=== PATIENT | male | born 1975 | race Caucasian/White ===

== ENCOUNTER 2021-02-15 21:06 | Emergency (ER) | payer SELFPAY ==
[2021-02-15] MEDS ORDERED: Lidocaine 1% 10 ML MDV INJECT ONE (21:44)
[2021-02-15] MEDS ORDERED: LORazepam 2 MG/ML SDV IVPUSH ONE (22:51)
--- NOTE | 2021-02-15 23:00 | EDM.PDOC ---
ED HPI GENERAL MEDICAL PROBLEM - General Chief Complaint: Laceration Stated Complaint: FELL DOWNSTAIRS/SEVERAL LAC Time Seen by Provider: 02/15/21 21:58 Source of Information: Reports: Patient, Family History Limitations: Reports: No Limitations - History of Present Illness INITIAL COMMENTS - FREE TEXT/NARRATIVE: 45-year-old fairly intoxicated male presents emergency department with laceration noted to his left upper lip as well as his right palm. Patient states he has been drinking and doing shots of hard alcohol a day today and fell down a flight of cement stairs. States he was not knocked unconscious at the time however he just laid there because he states he was unable to get up. Patient does have a large gouging laceration to the left upper lip which is through and through. Swelling and abrasion noted to left cheek. Large flap laceration noted to the lateral aspect of the right palm. - Related Data Allergies Allergy/AdvReac Type Severity Reaction Status Date / Time No Known Allergies Allergy Verified 02/15/21 21:33 Home Meds: Home Meds Amoxicillin 875 mg PO BID #19 tab 02/16/21 [Rx] Social & Family History - Tobacco Use Tobacco Use Status *Q: Former Tobacco User Used Tobacco, but Quit: Yes Month/Year Tobacco Last Used: 8 yr - Caffeine Use Caffeine Use: Reports: Coffee, Tea - Recreational Drug Use Recreational Drug Use: No ED ROS GENERAL - Review of Systems Review Of Systems: Comprehensive ROS is negative, except as noted in HPI. ED EXAM, SKIN/RASH Exam: See Below Exam Limited By: Intoxication General Appearance: Alert ED SKIN PROCEDURES - Laceration/Wound Repair Left Upper Other Appearance: Superficial Anesthetic Type: Local Local Anesthesia - Lidocaine (Xylocaine): 1% Plain Local Anesthetic Volume: 5cc Closed with: Sutures Lac/Wound length In cm: 3 Suture Size: 5-0 # of Sutures: 9 Suture Type: Nylon, Interrupted Mouth Appearance: Superficial Local Anesthesia - Lidocaine (Xylocaine): 1% Plain Local Anesthetic Volume: 3cc Closed with: Sutures Lac/Wound length In cm: 2 Suture Size: 5-0 # of Sutures: 3 Suture Type: Interrupted, Other (Vicryl) Right Hand Appearance: Superficial Anesthetic Type: Local Local Anesthesia - Lidocaine (Xylocaine): 1% Plain Local Anesthetic Volume: 4cc Closed with: Sutures Lac/Wound length In cm: 3 Suture Size: 5-0 # of Sutures: 8 Suture Type: Nylon, Interrupted Course - Vital Signs Text/Narrative:: Patient has a large gaping gash noted to his left upper lip through and through to the inside. Patient also has a large flap-like laceration noted to the lateral aspect of his right forearm. Do not appreciate any loose teeth. Patient is very intoxicated. Will obtain a CT scan of the head and facial bones. I will also order lidocaine 1% as patient will need to have sutures placed for repair of his lacerations. Last Recorded V/S: Last Vital Signs Temp 97.6 F 02/15/21 21:38 Pulse 101 H 02/15/21 21:38 Resp 20 02/15/21 21:38 BP 130/89 02/15/21 21:38 Pulse Ox 97 02/15/21 21:38 - Orders/Labs/Meds Orders: Active Orders 24 hr Category Date Time Status Head wo Cont [CT] Stat Exams 02/15/21 22:10 Taken Max Facial Sinus wo Cont [CT] Stat Exams 02/15/21 22:10 Taken Meds: Medications Discontinued Medications Generic Name Dose Route Start Last Admin Trade Name Freq PRN Reason Stop Dose Admin Lidocaine HCl 10 ml 02/15/21 21:44 02/15/21 21:48 Lidocaine 1% 10 Ml Mdv INJECT 02/15/21 21:45 10 ml ONETIME ONE Administration Lorazepam 0.25 mg 02/15/21 22:51 02/15/21 23:08 Lorazepam 2 Mg/Ml Sdv IVPUSH 02/15/21 22:52 0.25 mg ONETIME ONE Administration - Re-Assessments/Exams Free Text/Narrative Re-Assessment/Exam: 02/15/21 22:[address] of the head without contrast: Brain: No acute hemorrhage. Unremarkable white matter. No mass-effect. Cerebral ventricles: No ventriculomegaly. Paranasal sinuses: Visualized sinuses are unremarkable. No fluid levels. Mastoid air cells: Visualized mastoid air cells are well aerated. Bone/joints: Mild acute bilateral nasal bone fracture. No calvarial fracture. Soft tissues: Unremarkable. Impression: 1. No acute intracranial abnormality. 2. Nasal bone fracture. vRad radiologist impression CT maxillofacial without contrast orbital cavity: Orbits are normal. Globes are unremarkable. Bone/joints: Acute nondisplaced fracture of the bilateral nasal bones. Acute minimally displaced fracture of the anterior process of the maxilla. Paranasal sinuses: Normal. No air-fluid levels. Soft tissues: Anterior soft tissue swelling. Impression: Acute fractures of the nasal bones and anterior process of the maxilla. Face was prepped and draped in sterile fashion. Was just getting ready to inject patient with lidocaine and he got very anxious and stated he did not want to have the procedure completed. He states he wants to go home and signed AGAINST MEDICAL ADVICE. Patient was notified that he could very likely get a severe infection in this area and he states that he does not care and does not want to stay. I notified the charge nurse of the situation and she did go in and speak with the patient. He has agreed to stay if we do give him something for anxiety. I am very resilient to medicate the patient with anything as he is intoxicated however will give him 1/4 mg of IV Ativan. 02/16/21 00:21 Patient was now agreeable to receiving sutures. Patient wounds are prepped and draped in sterile fashion. Nursing staff notifies me that patient refused his tetanus shot. Patient had separation from his left inner lip and gumline. I did have Dr. Contreras come in to attempt to repair this area however he was unable to do so. We will allow tissue to granulate on its own. Patient has been notified to stay away from salty or acidic type of foods. 02/16/21 00:26 Patient was given a dose of amoxicillin 1000 mg p.o. We will send a prescription to his pharmacy for 875 twice daily for 10 days. Departure - Departure Time of Disposition: 00:26 Disposition: Home, Self-Care 01 Condition: Good Clinical Impression: Maxillary fracture, left side, initial encounter for closed fracture Laceration of face Qualifiers: Encounter type: initial encounter Qualified Code(s): S01.81XA - Laceration without foreign body of other part of head, initial encounter Nasal bone fractures Qualifiers: Encounter type: initial encounter Fracture type: closed Qualified Code(s): S02.2XXA - Fracture of nasal bones, initial encounter for closed fracture Laceration of hand Qualifiers: Encounter type: initial encounter Foreign body presence: without foreign body Laterality: right Qualified Code(s): S61.411A - Laceration without foreign body of right hand, initial encounter - Discharge Information Prescriptions: Amoxicillin 875 mg PO BID #19 tab Referrals: PCP,None [Primary Care Provider] - Forms: ED Department Discharge Additional Instructions: You were seen in the emergency department this evening after falling and hitting her face on the concrete. CT scan of the head and face were completed. Your nose is broken. You also have fracture noted to your left cheek area. These are minimally displaced and will heal on their own over time. You also had large laceration noted to your left upper lip which was repaired with sutures on the outside and the inside. Unable to repair some of the laceration to left upper lip and this will likely need to heal on its own over time. Recommend that you do not eat any salty foods or drink any acidic beverages as these will cause a significant amount of discomfort. Pressure teeth gently as you did have tissue from your top teeth that was a braised away. Lacerations to your face can come out in 5 days time. The lacerations to your inner lip will dissolve on their own. Lacerations were repaired on your right hand as well. The sutures can come out in 7 to 10 days time. You were given an antibiotic called amoxicillin while in the emergency department. I have sent prescription for this antibiotic to [facility] pharmacy for you to brain picker tomorrow. You will need to take this twice daily until gone. Should your condition worsen or change, do not hesitate returning to the emergency department. Sepsis Event Note (ED) - Focused Exam Vital Signs: Vital Signs Temp Pulse Resp BP Pulse Ox 02/15/21 21:38 97.6 F 101 H 20 130/89 97 - My Orders Last 24 Hours: My Active Orders 02/15/21 22:10 Head wo Cont [CT] Stat Max Facial Sinus wo Cont [CT] Stat - Assessment/Plan Last 24 Hours: My Active Orders 02/15/21 22:10 Head wo Cont [CT] Stat Max Facial Sinus wo Cont [CT] Stat
[2021-02-16] MEDS ORDERED: Amoxicillin 500 MG Cap PO ONE (00:20)
--- NOTE | 2021-02-16 07:21 | CT ---
CT facial bones Technique: Multiple axial sections through the facial bones were obtained. Reconstructed coronal and sagittal images were also obtained. Intravenous contrast was not utilized. Comparison: No prior facial bone study is available, head CT exam performed on the same day is available. Findings: Fracture is seen within the anterior edge of the maxilla at the level of the nasal bone. Fracture then extends adjacent to the nasal bone. Minimal displacement is noted. Soft tissue swelling is seen. Air is also noted within the soft tissues presumably due to skin injury. Paranasal sinuses are clear. No additional facial bone fracture is appreciated. Impression: 1. Fracture within the tip of the anterior maxilla at the level of the nasal bone. Fracture then extends into the nasal bone. Minimal displacement is seen. Diagnostic code #3 I agree with preliminary report from [facility], finalized on 02/15/21, 11:50 PM ICE CREAM MAN, code 1
--- NOTE | 2021-02-16 07:21 | CT ---
Head CT Technique: Multiple axial sections through the brain were obtained. Intravenous contrast was not utilized. Reconstructed coronal and sagittal images were obtained. Comparison: No prior intracranial imaging is available. Findings: Ventricles along with basal cisterns and sulci over the convexities are within normal limits. No abnormal parenchymal densities are seen. No evidence of intracranial hemorrhage is seen. No midline shift or mass-effect is seen. Bone window settings were reviewed. Minimal nasal bone fracture is seen. Visualized paranasal sinuses and mastoid sinuses are clear. No acute calvarial abnormality is appreciated. Impression: 1. Nasal bone fracture. 2. Nothing acute is otherwise seen on noncontrast head CT study. Diagnostic code #3 I agree with preliminary report from [facility], finalized on 02/15/21, 11:44 PM INSTRUMENTATION CHEMIST, code 1
== END 2021-02-16 00:47 | disposition home or self-care (01) ==
LOC: JD.ED 21:06
DX: S02.40DA Maxillary fracture, left side, initial encounter for closed fracture (principal); S02.2XXA Fracture of nasal bones, initial encounter for closed fracture; S01.511A Laceration without foreign body of lip, initial encounter; S61.411A Laceration without foreign body of right hand, initial encounter; Z87.891 Personal history of nicotine dependence; W10.8XXA Fall (on) (from) other stairs and steps, initial encounter
CPT/HCPCS: 12002; 12013; 70450; 70486; 96374; 99283; A9270; J2060; 99285

== ENCOUNTER 2022-04-11 22:20 | Emergency (ER) | payer SELFPAY ==
[2022-04-11 23:27] LABS: CORONAVIRUS COVID-19 NAA NEGATIVE (NEGATIVE)
[2022-04-11] MEDS ORDERED: Sodium Chloride 0.9% 1,000 ML IV SCH (23:30)
[2022-04-12] MEDS ORDERED: Iopamidol 755 Mg/ML 100 ML Bottle IVPUSH ONE (00:28)
[2022-04-12] MEDS ORDERED: Sodium Chloride 0.9% 10 ML Syringe FLUSH ONE (00:28)
[2022-04-12] MEDS ORDERED: Sodium Chloride 0.9% 100 ML IV SCH (00:30)
[2022-04-12] MEDS ORDERED: predniSONE 20 MG Tab PO ONE (02:22)
== END 2022-04-12 02:58 | disposition home or self-care (01) ==
LOC: JD.ED 22:20
DX: D86.9 Sarcoidosis, unspecified (principal); Z79.899 Other long term (current) drug therapy; Z86.16 Personal history of COVID-19; Z87.891 Personal history of nicotine dependence; Z20.822 Contact with and (suspected) exposure to COVID-19
CPT/HCPCS: 0241U; 71275; 82103; 85379; 93005; 96360; 99285; J3490; J7030; J7512; Q9967; 36415; 93010; 99284

== ENCOUNTER 2022-12-05 22:19 | Emergency (ER) | payer SELFPAY ==
[2022-12-05 22:44] LABS: HEMATOCRIT 43.8 % (42.0-52.0); HEMOGLOBIN 15.4 gm/dl (14.0-18.0); MEAN CORPUSCULAR HGB CONC 35.2 g/dl (32.0-36.0); MEAN CORPUSCULAR VOLUME 82.5 fl (83.0-99.0); MEAN PLATELET VOLUME 8.4 fl (9.4-12.4); PLATELET COUNT,PLT 249 K/mm3 (150-400); RED BLOOD CELL COUNT 5.31 M/mm3 (4.52-5.90); WHITE BLOOD CELL COUNT,WBC 5.38 K/mm3 (3.9-11.3)
[2022-12-05 23:11] LABS: BAND PERCENT MAN 0 % (0-10); BASOPHILS PERCENT MAN 1 (0.2-1.2); EOSINOPHILS PERCENT MAN 1 % (0.8-7.0); LYMPHOCYTES % ATYPICAL MANUAL 0 %; LYMPHOCYTES PERCENT MAN 31 % (20-40); MONOCYTES PERCENT MAN 12 % (2-10); PLATELET COUNT ESTIMATE ADEQUATE
[2022-12-05 23:16] LABS: A/G RATIO 0.8 (1-2); ALBUMIN 3.7 g/dl (3.4-5.0); ANION GAP 18.6 (5-15); BILIRUBIN TOTAL 0.3 mg/dL (0.2-1.0); CALCIUM 8.9 mg/dL (8.5-10.1); CREATININE 0.8 mg/dL (0.7-1.3); EST CRCL DRUG DOSING (CG) 122.89 mL/min; POTASSIUM,K 3.6 mEq/L (3.5-5.1); PROTEIN TOTAL,TP 8.6 g/dl (6.4-8.2)
[2022-12-05] MEDS ORDERED: Albuterol 6.7 GM Inhaler INH ONE (23:55)
[2022-12-06 00:17] LABS: CORONAVIRUS COVID-19 NAA NEGATIVE (NEGATIVE); INFLUENZA A NAA NEGATIVE (NEGATIVE)
== END 2022-12-06 02:00 | disposition home or self-care (01) ==
LOC: JD.ED 22:19
DX: J40 Bronchitis, not specified as acute or chronic (principal); Z20.822 Contact with and (suspected) exposure to COVID-19; Z86.16 Personal history of COVID-19; Z91.018 Allergy to other foods
CPT/HCPCS: 0240U; 36415; 71045; 71045-26; 80053; 83880; 85007; 85027; 85379; 86140; 87651-QW; 93005; 93010; 94640; 99284; 99285; A9270-GY

== ENCOUNTER 2023-10-27 19:07 | Emergency (ER) | payer SELFPAY ==
[2023-10-27 19:48] LABS: BASOPHILS PERCENT AUTO 0.3 % (0.0-1.0); EOSINOPHILS ABSOLUTE AUTO 0.1 K/mm3 (0.0-0.4); EOSINOPHILS PERCENT AUTO 1.7 % (0.0-6.0); HEMATOCRIT 43.6 % (42.0-52.0); HEMOGLOBIN 14.9 gm/dl (14.0-18.0); IMMATURE GRAN ABSOLUTE AUTO 0.02 K/mm3 (0.00-0.05); IMMATURE GRAN PERCENT AUTO 0.3 % (0.0-0.4); LYMPHOCYTES ABSOLUTE AUTO 1.6 K/mm3 (1.0-4.8); LYMPHOCYTES PERCENT AUTO 23.8 % (24.0-44.0); MEAN CORPUSCULAR HEMOGLOBIN 28.7 pg (28.0-32.0); MEAN CORPUSCULAR HGB CONC 34.2 g/dl (32.0-36.0); MEAN CORPUSCULAR VOLUME 83.8 fl (83.0-99.0); MEAN PLATELET VOLUME 8.6 fl (9.4-12.4); MONOCYTES ABSOLUTE AUTO 0.9 K/mm3 (0.0-0.8); MONOCYTES PERCENT AUTO 12.5 % (0.0-8.0); NEUTROPHILS ABSOLUTE AUTO 4.2 K/mm3 (1.8-7.7); NEUTROPHILS PERCENT AUTO 61.4 % (41.0-71.0); PLATELET COUNT,PLT 236 K/mm3 (150-400); WHITE BLOOD CELL COUNT,WBC 6.88 K/mm3 (3.9-11.3)
[2023-10-27] MEDS: Albuterol/Ipratropium 3.0-0.5 MG/3 ML Neb Soln NEB ONE (20:00)
[2023-10-27 20:09] LABS: APPEARANCE,URINE CLEAR (Clear); BILIRUBIN,URINE NEGATIVE (Negative); COLOR,URINE LIGHT YELLOW (Yellow); GLUCOSE,URINE NEGATIVE (Negative); KETONES,URINE NEGATIVE (Negative); LEUKOCYTE ESTERASE,URINE NEGATIVE (Negative); NITRITE,URINE NEGATIVE (Negative); OCCULT BLOOD,URINE NEGATIVE (Negative); PH,URINE 6.5 (5.0-8.0); PROTEIN,URINE NEGATIVE (Negative); UROBILINOGEN,URINE 0.2 (0.2-1.0)
[2023-10-27 20:17] LABS: A/G RATIO 0.9 (1-2); ALBUMIN 3.8 g/dl (3.4-5.0); ANION GAP 14.9 (5-15); BILIRUBIN TOTAL 0.4 mg/dL (0.2-1.0); BUN/CREATININE RATIO 14.4 (14-18); C-REACTIVE PROTEIN 0.93 mg/dL (<0.30); CALCIUM 9.2 mg/dL (8.5-10.1); CREATININE 0.9 mg/dL (0.7-1.3); EST CRCL DRUG DOSING (CG) 98.17 mL/min; MAGNESIUM 1.8 mg/dL (1.8-2.4); POTASSIUM,K 3.9 mEq/L (3.5-5.1)
[2023-10-27 20:44] LABS: CORONAVIRUS COVID-19 NAA NEGATIVE (NEGATIVE); INFLUENZA A NAA NEGATIVE (NEGATIVE); RESPIRATORY SYNCYTIAL VIR NAA NEGATIVE (NEGATIVE)
[2023-10-27] MEDS: methylPREDNISolone Sodium Succinate 125 MG/2 ML SDV IVPUSH ONE (21:53)
[2023-10-27] MEDS: Sodium Chloride 0.9% 10 ML Syringe FLUSH PRN (21:55)
[2023-10-27] MEDS: Budesonide 0.5 MG/2 ML Neb Susp NEB ONE (21:57)
== END 2023-10-28 01:05 | disposition home or self-care (01) ==
LOC: JD.ED 19:07
DX: J84.10 Pulmonary fibrosis, unspecified (principal); U09.9 Post COVID-19 condition, unspecified; Z91.018 Allergy to other foods
CPT/HCPCS: 0241U; 36415; 71046; 80053; 81003; 83735; 84484; 85025; 86140; 93005; 94640; 96374; 99285; J2919; J3490; J7620-GY